=== PATIENT | female | born 1940 | race Caucasian/White ===

== ENCOUNTER 2017-01-28 08:00 | Outpatient (CLI) | payer MEDICARE ==
--- NOTE | 2017-01-28 11:40 | NM ---
RADIONUCLIDE PARATHYROID PLANAR AND SPECT CT SCAN: Date: 01/28/17 HISTORY: Hypercalcemia, primary hyperthyroidism. RADIOPHARMACEUTICAL: 26 mCi technetium-99m sestamibi injected intravenously. FINDINGS: There is physiologic activity in the salivary glands and thyroid gland. There is a persistently increased focus of tracer localization in the retrosternal region posterior to the manubrium of the sternum, consistent with parathyroid adenoma. IMPRESSION: Parathyroid adenoma in the upper chest. POS: ERI
== END 2017-01-28 08:01 | disposition home or self-care (01) ==
LOC: NM 08:00
PROVIDERS: ATTEND Otolaryngology Plastic Surgery within the Head & Neck
DX: E83.52 Hypercalcemia (principal); E21.0 Primary hyperparathyroidism
CPT/HCPCS: 78072; A9500